=== PATIENT | male | born 1930 | race Caucasian/White ===

== ENCOUNTER → 2017-01-20 | Outpatient (CLI) | payer MEDICARE, BC ==
[~2017-01-20] MED LIST: HYDR-3027 PO; LOSA50TA6 PO; PARO10TA76 PO; TAMS0.4C2 PO
--- NOTE | 2017-01-20 15:12 | PN ---
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 HPI 86-year-old male 4 months status post left total hip replacement as well as removal of hardware that was performed on 09/22/2016. Patient denies any pain complaints. He does state however, for 2 days last week he had aching pain along the lateral thigh of the left lower extremity. Pain was self-limiting and has not returned. Denies any falls. Patient is walking normally. Very pleased status post surgery as he has no complaints to the hip. Denies any calf pain or shortness of breath. Presents today for repeat evaluation. Review of Systems Const: No Fever, no chills, no Fatigue, normal appetite, no diaphoresis. Resp: No SOB, no wheezing, no chest pain. CV: No chest pain, no palpitaions, no LINDSAY. Physical Exam General Appearance: well-developed, well-nourished, in no acute distress. Left hip: Gait is normal and nonantalgic. Patient is walking independently. While lying supine, patient is able to actively flex the hip up to 120 and passively up to 140. Patient is able to reach 0 extension. About 0-30 with abduction. No pain with range of motion. Negative Homans sign. Normal sensory examination to light touch throughout the left lower extremity. Imaging: X-ray to the left hip performed on 01/20/2017 showing prosthesis intact. Prosthesis is well attached to bone. There is pre-existing acetabular fracture to the middle third of the acetabulum. When compared to previous x-rays, fracture remains stable with no changes. Increased callus formation to the fracture. When correlated clinically, there seems to be no symptoms as patient denies any pain complaints and near full range of motion actively. No pain with full range of motion on passive range of motion. Normal strength was exhibited to the left hip as well on resistance. Allergies Coded Allergies: No Known Allergy (Unverified , 09/24/16) Assessment/Plan -Patient progressing well -Surgical wound well healed. -No signs of infection or DVT on exam. -Antibiotic prophylaxis card provided today. -Patient may discontinue hip precautions at this time. -Follow-up 6 months status post surgery. If patient is doing well at that time , possible follow-up on as-needed basis from that point. Dental prophylaxis discussed in detail today. Patient given prophylaxis card with antibiotic options. Patient is aware that antibiotics should be taken prior to any procedures to prevent increased risk of infection to the joint. Patient is aware that this will be for the rest of their life. Patient states understanding and compliance. Medications Home Meds Reported Medications Hydrocodone Bit/Acetaminophen (Vicodin HP 10-300) 1 Each Tablet, 2 TAB PO Q4H Y for PAIN, TAB 09/24/16 Paroxetine Hcl* (Paroxetine*) 10 Mg Tablet, 10 MG PO HS, TAB 09/22/16 Tamsulosin Hcl* (Tamsulosin Hcl*) 0.4 Mg Cap.er.24h, 0.4 MG PO HS, CAP 09/22/16 Losartan Potassium* (Losartan Potassium*) 50 Mg Tablet, 50 MG PO DAILY, TAB 09/22/16 GILDA REA PA-C Jan 20, 2017 15:12
--- NOTE | 2017-01-20 18:05 | RADRPT ---
PROCEDURE: XR Left Hip and pelvis. CLINICAL INDICATION: Left hip pain. Pelvic pain. Postop. TECHNIQUE: Two views. Frontal pelvis and lateral left hip. COMPARISON: 11/04/2016. FINDINGS: There is no fracture or dislocation. Vascular calcifications are present consistent with atherosclerosis. There is a left hip total arthroplasty which appears satisfactory. There are mild degenerative changes of the right hip with osteophytes noted. There is no lytic or blastic lesion. The upper pelvis is not included on the image. IMPRESSION: 1. Satisfactory postoperative appearance of the left hip. 2. 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 3. Atherosclerosis. RPTAT: QQ .Carlos Alberto Mccormick MD, MD Date Time Electronically viewed and signed by .Carlos Alberto Mccormick MD, MD on 01/20/2017 18:05 .R/
== END | disposition home or self-care (01) ==
LOC: HKI 13:45
DX: Z47.1 Aftercare following joint replacement surgery (principal); Z96.642 Presence of left artificial hip joint
CPT/HCPCS: 73502; G0463

== ENCOUNTER → 2017-04-13 | Outpatient (CLI) | payer MEDICARE, BC ==
--- NOTE | 2017-04-13 16:14 | PN ---
Date/Time of Note Date/Time of Note DATE: 04/13/17 TIME: 16:10 Outpatient Progress Note Chief Complaint 7 month follow-up status post left total hip arthroplasty. HPI 86-year-old male presents today for 7 month follow-up status post left total hip arthroplasty as well as removal of hardware that was performed on 2015. Patient states that pain to the hip is no longer as he continues to do well with no pain. On occasion however, he does experience aching to the lateral thigh of the left lower extremity. Patient had similar complaints when he was last seen on 01/20/2017. Pain has decreased when he experiences these episodes and is more mild. Pain usually occurs with walking long distances. Patient is back to his normal activities of daily living status post hip replacement. Presents today for repeat evaluation. Review of Systems Const: No Fever, no chills, no Fatigue, normal appetite, no diaphoresis. Resp: No SOB, no wheezing, no chest pain. CV: No chest pain, no palpitaions, no LINDSAY. Physical Exam Blood pressure is 144/64, temperature is 98.4, pulse is 79, respiratory rate is 12, height is 5 foot 7 inches, weight is 154 pounds General Appearance: well-developed, well-nourished, in no acute distress. Left hip: No pain to the left hip on exam. No tenderness to palpation. Patient is walking well as his gait is normal and nonantalgic. 0-120 with active flexion/extension. Normal internal and external rotation. Normal strength to the hip flexors and extensors. Imaging X-ray of the left hip performed on 04/13/2017 showing all components appearing well aligned, attached and integrated to the bone. No signs of any lucency between metal and bone. Previous acetabular fracture from past hip injury is unchanged when compared to x-rays that were performed in January 2017. 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 No compromise to the prosthesis. Allergies Coded Allergies: No Known Allergy (Unverified , 09/24/16) Assessment/Plan * Patient continues to do well * Continue with normal activities of daily living. * Follow-up at 1 year postop for repeat evaluation to the left hip * Reinforced dental prophylaxis today. Dr. Hurd is seen patient today as well and agrees with plan. Medications Home Meds Reported Medications Hydrocodone Bit/Acetaminophen (Vicodin HP 10-300) 1 Each Tablet, 2 TAB PO Q4H Y for PAIN, TAB 09/24/16 Paroxetine Hcl* (Paroxetine*) 10 Mg Tablet, 10 MG PO HS, TAB 09/22/16 Tamsulosin Hcl* (Tamsulosin Hcl*) 0.4 Mg Cap.er.24h, 0.4 MG PO HS, CAP 09/22/16 Losartan Potassium* (Losartan Potassium*) 50 Mg Tablet, 50 MG PO DAILY, TAB 09/22/16 GILDA REA PA-C Apr 13, 2017 16:14
--- NOTE | 2017-04-14 07:40 | RADRPT ---
PROCEDURE: XR pelvis and bilateral hips. CLINICAL INDICATION: PAIN TECHNIQUE: AP pelvis and frog lateral views of the bilateral hips were performed. COMPARISON: Plain radiographs of the pelvis and left hip from 01/20/2017 FINDINGS: There is normal mineralization and alignment. No acute fracture or osseous lesion is identified. A left hip prosthesis is again noted in near anatomic alignment without evidence of hardware looseni ng. There are stable mild degenerative changes of the right hip joint including joint space narrowing. The soft tissues are unremarkable. IMPRESSION: Left hip prosthesis in near anatomic alignment. Stable mild degenerative changes of the right hip joint. RPTAT: EE Physician Lety Date Time Electronically viewed and signed by Physician Lety on 04/14/2017 07:40 /
== END | disposition home or self-care (01) ==
LOC: HKI 14:15
DX: Z09 Encounter for follow-up examination after completed treatment for conditions other than malignant neoplasm (principal); Z96.642 Presence of left artificial hip joint
CPT/HCPCS: 73502; G0463